=== PATIENT | male | born 1995 | race Caucasian/White ===

== ENCOUNTER 2016-05-27 22:41 | Emergency (ER) | payer BC ==
[~2016-05-27] VITALS: Ht 177.8 cm; Wt 70.4 kg
[~2016-05-27 22:41] MED LIST: ALB0.5V INH; AMOX500C5 PO; GUAI100L73 PO; MNTL10T PO; TRM50T PO
[2016-05-27] MEDS ORDERED: NF-TORA10 PO (23:22)
[2016-05-27] MEDS ORDERED: CRUT1EAC7 MC (23:22)
--- NOTE | 2016-05-27 23:44 | NUR ---
GEL ANKLE SPINT APPLIED. GOOD CMS AND CAP REFILL POST APPLICATION.
[2016-05-27 23:45] VITALS: BP 124/83
--- NOTE | 2016-05-28 08:22 | Diagnostic Imaging Report ---
INDICATION: Left ankle injury. 3 views of the left ankle show no fracture, dislocation, or other acute abnormalities. IMPRESSION: Negative left ankle. Dictated by: Dictated on workstation # [id number]
== END 2016-05-27 23:30 | disposition home or self-care (01) ==
LOC: ED 22:43
DX: S93.492A Sprain of other ligament of left ankle, initial encounter (principal); X50.1XXA Overexertion from prolonged static or awkward postures, initial encounter; Y93.67 Activity, basketball; Y92.39 Other specified sports and athletic area as the place of occurrence of the external cause; Y99.9 Unspecified external cause status
CPT/HCPCS: 73610; 99283; L4350